=== PATIENT | female | born 1965 | race Caucasian/White ===

== ENCOUNTER 2024-04-20 02:24 | Inpatient (IN) | payer BC, SELFPAY ==
[2024-04-19 22:47] VITALS: BP 168/96
[2024-04-19 23:10] VITALS: BMI 35.6
[2024-04-19 23:14] VITALS: BP 156/91
[2024-04-19 23:27] LABS: % Basophils 0.4 % (0-2); % Eosinophils 1.8 % (0-6); % Immature Granulocytes 0.5 % (0-0.5); % Lymphocytes 19.3 % (20.5-51.1); % Monocytes 8.3 % (1.7-9.3); % Neutrophils 69.7 % (42.2-75.2); Absolute Eosinophils 0.2 10^3/uL (0-0.7); Absolute Immature Granulocytes 0.1 10^3/uL (0-0.05); Absolute Lymphocytes 1.9 10^3/uL (1.2-3.4); Absolute Monocytes 0.8 10^3/uL (0.1-0.6); Absolute Neutrophils 6.8 10^3/uL (1.4-6.5); Hematocrit 40.7 % (37.0-47.0); Hemoglobin 13.8 g/dL (12.0-16.0); Mean Corp Hgb Conc. 33.9 g/dL (33.0-37.0); Mean Corpuscular Hgb 28.5 pg (27.0-31.0); Mean Corpuscular Volume 84.1 fL (81.0-99.0); Nucleated Red Blood Cells % 0 %; Platelet Count 298 10^3/uL (130-400); Red Blood Cell Count 4.84 10^6/uL (4.20-5.40); Red Cell Dist. Width 13.4 % (11.5-14.5); White Blood Cell Count 9.8 10^3/uL (4.8-10.8)
[2024-04-19 23:52] LABS: ALT (SGPT) 43 U/L (0-35); AST (SGOT) 50 U/L (14-36); Albumin 4.6 g/dl (3.5-5.0); Alkaline Phosphatase 95 U/L (38-126); Blood Urea Nitrogen 28 mg/dl (7-17); Carbon Dioxide 27 mmol/L (22-30); Chloride 96 mmol/L (98-107); Estimated Creatinine Clearance 62 ml/min; Glucose 166 mg/dl (70-99); Potassium 4.8 mmol/L (3.5-5.1); Sodium 135 mmol/L (135-145); Total Bilirubin 0.9 mg/dl (0.2-1.3); Total Protein 7.9 g/dl (6.3-8.2); eGFR > 60.00
[2024-04-20] VITALS (21 sets, daily range): BP systolic 100–178; BP diastolic 52–101; BMI 35.1
[2024-04-20 00:02] LABS: Troponin I 0.152 ng/ml
--- NOTE | 2024-04-20 00:12 | ED.GENMED ---
History of Present Illness
General
Chief Complaint: Chest Pain
Source: patient
Time Seen by Provider: 04/20/24 00:10
Nursing documentation reviewed up to this point in time: agreed with
Travel History
Have you had any contact with someone who has COVID-19?: No
Do you have any symptoms of coronavirus? Fever > 100 degrees, chills, cough, shortness of breath, sore throat, loss of taste or smell, muscle aches, or headache?: No
History of Present Illness
History of Present Illness:
59-year-old female that presents with 1 week of left-sided jaw pain and intermittent chest pain. She states that the chest pain feels similar to 'cold air burning her throat'. Patient follows with Dr. Nikunj Muñoz, ernie Franklin/[facility]
cardiology
Vital signs are stable. Patient not hypoxic
Nursing note reviewed. I agree with nursing documentation up to this point in time.
Home Meds and allergies reviewed.
NUMBER AND COMPLEXITY OF PROBLEMS ADDRESSED AT THE ENCOUNTER
� Chronic conditions affecting care: Hypertension, hyperlipidemia, diabetes, sleep apnea, CVA
� Acute Exacerbation and/or Progression of Chronic Illness:
� Differential Diagnosis includes: ACS, GERD, musculoskeletal chest pain
AMOUNT AND/OR COMPLEXITY OF DATA TO BE REVIEWED AND ANALYZED
I performed an independent evaluation of the following and my interpretation is:
EKG: EKG shows normal sinus rhythm rate of 78 with normal intervals, indeterminate axis. No evidence of obvious acute ischemia present. No previous EKG available in our system, in MUSE through computer interpretation there is
'nonspecific T wave abnormality no longer evident in inferior leads'.
Repeat EKG shows normal sinus rhythm rate of 95 with similar morphology to previous but increased rate.
CT:
X-rays:
Ultrasound:
Laboratory Studies: Initial troponin 0.152
Other:
Review of other/old records: Exercise stress test dated 02/28/2021:
CONCLUSION:
1.No obvious ischemia at 69% maximum predicted heart
rate, however, inconclusive stress test given low heart
rate.
2.Recommend pharmacologic nuclear stress, if indicated.
Clinical information was obtained by an independent historian: is present at the bedside
Prescriptions/Medications Considered but not given: Patient takes 325 aspirin daily and did so today.
Further testing considered but not performed:
RISK OF COMPLICATIONS AND/OR MORBIDITY OR MORTALITY OF PATIENT MANAGEMENT
Social determinants of health affecting care: Good Social Support
Discussion with other providers:
Escalation of care including admission/observation vs risk of discharge considered: Given this patient elevated troponin, cardiology moving fine.
CRITICAL CARE NOTE:
Total Time (exclusive of procedures):
Update:
Past History
Past History
ED Past Medical History: HTN, Hypercholesterolemia, NIDDM and Other (TIA)
ED Past Surgical History: Appendectomy and
Social History
Tobacco: Non-smoker
Alcohol: None
Drug: None
Personal:
Living: with family
Employment: Employed
Phy Exam
Physical Exam
Physical Exam:
Physical Exam
Vital signs and allergy list reviewed and agreed with.
GENERAL: Alert , in minimal to no apparent distress
EYE: pupils equal, EOMI, anicteric
NECK: Supple, no significant adenopathy. No masses. Trachea midline
ENT: Oropharynx is clear, mmm.
CARDIAC: Regular rate and rhythm . No M/R/G
LUNGS: Clear breath sounds bilaterally, no acute respiratory distress, no wheezes/rales/rhonchi
ABDOMEN: Soft, without focal tenderness, no r/g, no cvat. Normal BSx4q
NEUROLOGICAL: Alert and oriented, no focal neuro deficits
SKIN: Warm and dry, skin intact.
MUSCULOSKELETAL: No edema, well perfused. Moves all 4 extremities
PSYCH: Normal and appropriate interaction.
Scores
Heart Score for Chest Pain Patients
STEMI patient?: No
History: Slightly or Non-Suspicious
ECG: Normal
Age: >45 - <65 years
Risk Factors: 1 or 2 Risk Factors
Troponin: >1 - <3 x Normal Limit
Heart Score for Chest Pain Patients: 3
Heart Score Risk: 2.5% MACE over next 6 weeks
Course
Orders/Labs/Results
Orders:
Orders
04/19/24 22:50
Electrocardiogram (*1) Urgent
Reason for Study: Chest Pain
EKG- Treatment ONCE
04/19/24 23:09
CMP [Comprehensive Metabolic Panel] Urgent
Complete Blood Count/With Diff Urgent
Troponin I Urgent
04/20/24 00:15
Electrocardiogram (*1) Urgent
Reason for Study: Chest Pain
EKG- Treatment ONCE
04/20/24 00:22
Troponin I Urgent
04/20/24 00:28
Nitroglycerin Sublingual [Nitrostat (Sublingual)] 0.4 mg SL [id number] PRN
04/20/24 02:09
Admit/Transfer Patient As Directed
Co-Sign Provider:
Level of Care: Inpatient admission
Assign to:: IVU
Physician / Group: Misha
Diagnosis: Chest Pain
Reason for Hospitalization: Chest Pain
Expected length of stay greater than two midnights?: Yes
ELOS- Estimated Length of Stay in days: 2
I certify the patient meets the requirements for IP care: Yes
04/20/24 02:14
Code Status As Directed
Resuscitation Status: Full Code
04/20/24 02:58
Acetaminophen [Tylenol] 650 mg PO Q4HPRN PRN
Dextrose 50%-Water [Dextrose 50% Syringe] 12.5 grams IV [id number] PRN
Glucagon [GlucaGen] 1 mg IM PRN PRN
Morphine Sulfate 2 mg IV Q4HPRN PRN
Nitroglycerin Sublingual [Nitrostat (Sublingual)] 0.4 mg SL [id number] PRN
04/20/24 02:58
CARDIOLOGY CONSULT Routine
Consulting Provider: Sawyer Salazar
Was physician already notified: No
Reason for consult: Chest Pain, Abnormal Troponin
Consult Notification Routine
Specialty to Notify: Cardiology
Activity As Directed
Activity Level: Ambulate
With Assistance
Bedside Glucose Monitoring As Directed
Frequency: AC&HS
Additional Instructions:: Change to q6h if pt on TPN, tube feeding or not eating
Bladder Scan As Directed
Follow Bladder Retention/Intermittent Cath Algorithm?: Yes
PRN if no void in __ hours: 6
Frequency: Per Retention Algorithm
If Bladder Scan Result >: 400
then:: Straight cath
EKG with chest pain [ECG as needed] As Directed
ECG as needed for:: Chest Pain
I/O [Intake/ Output] As Directed
Frequency: Per unit guidelines
Orthostatic Vital Signs As Directed
Orthostatic VS Frequency: BID
Pneumatic Compression Sleeves As Directed
Type: Knee high
Straight Cath As Directed
Frequency: Per Retention Algorithm
Additional Instructions: straight cath as needed per acute urinary retention algorithm for 24 hrs
Additional Instructions: for bladder scan greater than 400 mL
Vital Signs As Directed
Frequency: Per unit guidelines
Weight As Directed
Frequency: Daily
Oxygen Therapy [O2 Therapy] [RESP] Routine
Titrate/Wean O2 to maintain O2 sat greater than (%): 94
Ot Eval And Treat Routine
PT Consult [Pt Eval And Treat] Routine
Activity Level: Ambulate
With Assistance
DX Deep Vein Thrombosis Video Routine
04/20/24 04:49
Basic Metabolic Panel IN AM
Cardiovascular Evaluation IN AM
Complete Blood Count/No Diff IN AM
Glycohemoglobin (HgbA1c) IN AM
Troponin I Q6H
04/20/24 06:00
EKG [Electrocardiogram (*1)] IN AM
Reason for Study: Chest Pain
04/20/24 07:30
Insulin Aspart Corrective Low [Novolog Flexpen-Low Resistance] See Protocol SC AC
04/20/24 08:00
Aspirin Chewable [Low Strength Aspirin] 81 mg PO DAILY
Heparin 5,000 units SC Q8
Metoprolol Xl [Toprol Xl] 100 mg PO DAILY
Spironolactone [Aldactone] 50 mg PO DAILY
04/20/24 08:58
Troponin I Q6H
04/20/24 14:58
Troponin I Q6H
04/20/24 18:00
Atorvastatin [Lipitor] 40 mg PO QPM
04/20/24 22:00
Cyclobenzaprine HCl [Flexeril] 5 mg PO HS
Famotidine [Pepcid] 40 mg PO HS
04/21/24 Breakfast
NPO
Allow oral meds: Yes
Allow clear liquids: Sips of Clears
Abnormal Lab Results
04/19/24 04/20/24
23:09 00:22
Abs Immat Gran (auto) 0.1 H 10^3/uL
(0-0.05)
Absolute Neuts (auto) 6.8 H 10^3/uL
(1.4-6.5)
Absolute Monos (auto) 0.8 H 10^3/uL
(0.1-0.6)
Lymphocytes % 19.3 L %
(20.5-51.1)
Chloride 96 L mmol/L
(98-107)
BUN 28 H mg/dl
(7-17)
Glucose 166 H mg/dl
(70-99)
AST 50 H U/L
(14-36)
ALT 43 H U/L
(0-35)
Troponin I 0.152 H* ng/ml 0.117 H* ng/ml
04/19/24 23:09
04/19/24 23:09
Vital Signs
Initial and Last Documented VS:
Initial Vital Signs
Temp Pulse Resp BP Pulse Ox
97.8 F 88 18 168/96 100
04/19/24 22:47 04/19/24 22:47 04/19/24 22:47 04/19/24 22:47 04/19/24 22:47
Last Documented Vital Signs
Temp Pulse Resp BP Pulse Ox
98.2 F 63 18 148/89 100
04/20/24 04:56 04/20/24 04:51 04/20/24 04:56 04/20/24 04:51 04/20/24 04:56
*Critical Care Note
Total Time (30-74mins, 75-104mins- exclusive of procedures): Not Applicable
ED Attending Note
-
Portions of this chart may have been created with voice recognition software.� Occasional wrong word or��sound alike� substitutions may have occurred due to the inherent limitations of voice recognition software.
Discharge Plan
Departure
Patient Disposition: Admit
Date of Disposition: 04/20/24
Time of Disposition: 01:04
Admit to: Telemetry
Presentation/result/management discussed w/ accepting MD/DO: Hospitalist
Condition: Fair
Discharge Problem:
Chest pain
Interventions
Interventions:
*Risk Screen - Suicide Last Done: 04/19/24 22:47
*General Assessment Last Done: 04/19/24 23:10
*Neglect/Abuse Screening Last Done: 04/19/24 22:47
ED- Fall Risk Assessment Last Done: 04/19/24 23:11
*ED COVID-19 Vaccine History Last Done: 04/19/24 23:10
*Nursing Disposition Last Done: 04/20/24 03:04
ED- Cardiac Assessment Last Done: 04/19/24 23:30
Discharge Date and Time
Discharge Date/Time: 04/20/24 03:05
[2024-04-20] MEDS: NITROSTAT (SUBLINGUAL) 0.400000000000000022 MG SL ×5 (00:30→04:38)
[2024-04-20 00:59] LABS: Troponin I 0.117 ng/ml
--- NOTE | 2024-04-20 02:17 | HPS.HSE ---
Family Physician
-
Family Physician: Joan Alonso
Chief Complaint
-
Jaw Pain / Headache
History of Present Illness
Patient is a 59y F with PMH significant for PCOS, hypertension and DM-II who presents to ED complaining of bilateral jaw pain and headache. Patient states that she has been having symptoms intermittently for the past week or so. She reports
bilateral jaw pain, diffuse headache, occasional blurry vision. She has had some burning sensation in the chest that is worse with lying flat. Patient reports that she has had headaches daily for the past week. She has a prior history of
migraine; however, current headache is not similar to her usual migraine.
Patient denies any prior history of similar constellation of symptoms.
In the ED, patient received two doses of SL NTG and her symptoms have resolved. She has no jaw pain or headache at present.
Medical History
Past Medical History
Past Medical History: Reports Other
Additional Past Medical History:
Hypertension
DM-II
Mitral Valve Prolapse
PCOS
Obesity
TMJ
TIA
Past Surgical History: Reports Other
Additional Past Surgical History:
Appendectomy
Social History
Tobacco: Non-smoker
Alcohol: None
Drug: None
Living: With Family
Family History
Family History: Other (Father: CAD Brother: CAD)
Allergies / Home Medications
Allergies reflects when Allergies were last updated in [facility].
Home Medications with original date entered in [facility]
Allergy/Medication List:
Allergies
Allergy/AdvReac Type Severity Reaction Status Date / Time
No Known Allergies Allergy Verified 04/19/24 22:49
Home Medications
aspirin 325 mg tablet 325 mg PO DAILY 05/02/17
atorvastatin 10 mg tablet 10 mg PO QPM 05/02/17
cholecalciferol (vitamin D3) 25 mcg (1,000 unit) tablet 5,000 units PO DAILY 05/02/17
ibuprofen 200 mg capsule (Advil Liqui-Gel) 400 - 600 mg PO DAILYPRN PRN pain 05/02/17
Metformin Extended Release 1 tab PO BID 09/19/17
cyclobenzaprine 5 mg tablet 5 mg PO HS 04/20/24
famotidine 04/20/24
fluticasone furoate 100 mcg-vilanterol 25 mcg/dose inhalation powder (Breo Ellipta) 1 inh inhalation DAILY 04/20/24
losartan 25 mg tablet 12.5 mg PO BID 04/20/24
metoprolol succinate 100 mg tablet,extended release 24 hr 100 mg PO DAILY 04/20/24
spironolactone 04/20/24
Review of Systems
-
History Source: Patient
A 12 point ROS was completed and negative except as noted: Yes
Constitutional: Denies Fever or Chills
EENT: Reports Other (Jaw Pain - bilateral); Denies Sore Throat
Respiratory: Denies Cough or Trouble Breathing
Cardiac: Reports Chest Pain; Denies Diaphoresis, Palpitations or Syncope
Abdomen/GI: Reports Other (Heartburn, belching.); Denies Abdominal Pain, Nausea, Vomiting or Diarrhea
: Denies Dysuria or Frequency
Musculoskeletal: Denies Joint Pain, Joint Swelling or Edema
Neurological: Reports Headache; Denies Dizzy, Weakness or Numbness
Psych: Denies Depression or Anxiety
Physical Exam
Vital Signs
Vital Signs
Temp Pulse Resp BP Pulse Ox
97.8 F 85 16 172/94 98
04/19/24 22:47 04/20/24 00:45 04/20/24 00:45 04/20/24 00:27 04/20/24 00:45
Physical Exam
General: Other (59y F in no acute distress.)
HEENT: Moist mucous membranes, PERRLA and Other (Thick neck.)
Respiratory: Clear; No Wheezes, Rales or Rhonchi
Cardiac: S1/S2, Regular Rhythm and Murmur (II/ BERNARDINO)
GI: Non Tender, Non Distended, Normal Bowel Sounds and Other (Obese)
Musculoskeletal: No Clubbing, No Cyanosis and No Edema
Neuro: AO x 3
Laboratory Results
-
04/19/24 23:09
04/19/24 23:09
Laboratory Results
Total Bilirubin 0.9 mg/dl (0.2-1.3) 04/19/24 23:09
AST 50 U/L (14-36) H 04/19/24 23:09
ALT 43 U/L (0-35) H 04/19/24 23:09
Alkaline Phosphatase 95 U/L (38-126) 04/19/24 23:09
Troponin I 0.117 ng/ml H* 04/20/24 00:22
Impression/Plan
-
A/P: Patient is a 59y F with PMH significant for hypertension and DM-II who presents to ED complaining of one week of intermittent headache, jaw pain, etc.
Myocardial Injury - Unknown Type
- Admit for further evaluation and treatment.
- Constellation of symptoms in this 59y female with DM may certainly represent anginal equivalent.
- Bilateral jaw pain, headache, chest burning improved with NTG.
- Troponin initially elevated at 0.152 and now 0.117.
- EKG is normal with no evident ischemia
- Monitor on telemetry.
- Continue ASA, statin, metoprolol, etc.
- Continue serial troponin
- Cardiology evaluation for additional recommendations / possible ischemic evaluation.
GERD
- Patient also describes burning sensation in the chest that is worse with lying supine.
- She notes that she takes Tums every evening before bed chronically.
- Certainly some of her symptoms may be of GI origin - though CV etiology must be rule out first.
- Continue acid suppression with H2 blockade and add PPI.
Benign Hypertension
- Stable. Continue outpatient med regimen with holding parameters.
- Adjust as needed or adequate BP control.
DM-II
- Stable. Hold PO metformin for now.
- Follow glucose and cover with SSI as needed
- Update A1C.
PCOS
Obesity
- Affects all aspects of care.
- Continue spironolactone for PCOS / HTN.
- Encourage continued healthy diet and regular exercise with goal of weight reduction.
DVT Prophylaxis: Subcut Heparin
Code Status: Full
--- NOTE | 2024-04-20 03:43 | PTCARENOTE ---
pt admitted into 224- admission and assessment completed- SCDs applied.
[2024-04-20] MEDS: MORPHINE SULFATE 2 MG IV (04:23)
[2024-04-20 04:58] LABS: Hematocrit 40.7 % (37.0-47.0); Hemoglobin 13.6 g/dL (12.0-16.0); Mean Corp Hgb Conc. 33.4 g/dL (33.0-37.0); Mean Corpuscular Hgb 28.5 pg (27.0-31.0); Mean Corpuscular Volume 85.3 fL (81.0-99.0); Mean Platelet Volume 9.8 fL (7.4-10.4); Platelet Count 318 10^3/uL (130-400); Red Blood Cell Count 4.77 10^6/uL (4.20-5.40); Red Cell Dist. Width 13.2 % (11.5-14.5); White Blood Cell Count 9.9 10^3/uL (4.8-10.8)
[2024-04-20] MEDS: TYLENOL 650 MG PO ×2 (05:04→21:47)
[2024-04-20 05:27] LABS: Blood Urea Nitrogen 25 mg/dl (7-17); Calcium 10.3 mg/dl (8.4-10.2); Carbon Dioxide 25 mmol/L (22-30); Chloride 101 mmol/L (98-107); Estimated Creatinine Clearance 62 ml/min; Glucose 160 mg/dl (70-99); HDL Cholesterol 30 mg/dl; Potassium 4.7 mmol/L (3.5-5.1); Sodium 139 mmol/L (135-145); Total Cholesterol 179 mg/dl (50-199); eGFR > 60.00
[2024-04-20 05:33] LABS: Troponin I 0.354 ng/ml
--- NOTE | 2024-04-20 05:33 | PTCARENOTE ---
late note:Pt rang at 0338- stating she was having 2/10 jaw pain and downstairs nitro helped this pain- x1 nitro tab given with positive relief-BP pre:138/84 post:100/68 Pt was able to rest in bed until. 0426 when she rang stating she had to ambulate
the bathroom- following her trip to the bathroom her BP aarti to 173/92. She stated the jaw pain had returned and it felt like all her symptoms when they first started on day 2mg morphine given per JAN- without relief- she then stated that
she was having 6/10 sharp midsternal chest pain- 'different' than she was having at home. Pt tearful and visibly uncomfortable in bed. 2L NC applied for comfort. nitro sublingual tab give x 2 with some relief. down to 2-3/10. CARLITO Kumar aware and
up to see the pt- emotional support provided. morning EKG and blood work obtained during this episode. BSC obtained for future voiding.
[2024-04-20 05:36] LABS: Triglyceride 403 mg/dl (10-149)
[2024-04-20 05:59] LABS: LDL Cholesterol, Direct 116 mg/dl
[2024-04-20 07:27] LABS: Glucose - Point of Care 172 mg/dl (70-99)
[2024-04-20] MEDS: LOW STRENGTH ASPIRIN 81 MG PO (07:58)
[2024-04-20] MEDS: HEPARIN 5000 UNITS SC (07:58)
[2024-04-20] MEDS: NSS (PRESERVATIVE FREE) 10 ML IV (07:58)
[2024-04-20] MEDS: ALDACTONE 50 MG PO (07:58)
[2024-04-20] MEDS: PROTONIX IV 40 MG IV (07:59)
[2024-04-20] MEDS: NOVOLOG FLEXPEN-LOW RESISTANCE 1 UNITS SC (08:05)
--- NOTE | 2024-04-20 08:41 | CON.CAR ---
Consultation
Consultation Request
Date/Time Consultation Requested: Apr 19 2024
Date/Time Consultation Performed: Apr 20 2024
Requesting Provider: Hospitalist
Performing Provider: Sawyer Salazar
Reason for Consultation: elevated troponin chest pain
Medical History
-
Chief Complaint: Jaw pain headache chest pain
History of Present Illness:
59-year-old female with history of PCOS, hypertension, type 2 diabetes and migraines who is coming in with bilateral jaw pain, headache, and chest pain. She tells me over the last couple of weeks she has noticed worsening headache as well as jaw
and neck pain. It was happening much more frequently and seem to be associated with exertion and relieved with rest. Over the last few days she has noticed increased jaw and neck pain as well as substernal burning and sharp pain especially with
exertion. Yesterday she was walking up the choir steps and it became more intense than previously. When she got to the top of the stairs she then noticed that started to resolve with rest. She does have a significant family history of coronary
artery disease with heart attacks and brothers at young ages less than 55 and her father as well. When she came into the emergency room she received sublingual nitroglycerin which helped relieve her chest pain. She is currently chest pain-free.
She required additional nitroglycerin overnight as well.
Past Medical History
Past Medical History: Other (PCOS hypertension type 2 diabetes migraines obesity TMJ TIA)
Past Surgical History: Other (Appendectomy and )
Social History
Tobacco: Non-Smoker
Alcohol: None
Drug: None
Personal:
Living: With Family
Employment: Employed
Family History
Family History: CAD
Allergies / Home Medications
Allergy/AdvReac Type Severity Reaction Status Date / Time
No Known Allergies Allergy Verified 04/19/24 22:49
�Medication �Instructions �Recorded �Confirmed �Type
aspirin 325 mg tablet 325 mg PO DAILY 05/02/17 04/20/24 History
atorvastatin 10 mg tablet 10 mg PO QPM 05/02/17 04/20/24 History
cholecalciferol (vitamin D3) 25 2,000 units PO BID 05/02/17 04/20/24 History
mcg (1,000 unit) tablet
ibuprofen 200 mg capsule (Advil 400 - 600 mg PO DAILYPRN PRN pain 05/02/17 04/20/24 History
Liqui-Gel)
Metformin Extended Release 1 tab PO BID 09/19/17 04/20/24 History
cyclobenzaprine 5 mg tablet 5 mg PO HS 04/20/24 04/20/24 History
famotidine 04/20/24 History
fluticasone furoate 100 1 inh inhalation DAILY 04/20/24 04/20/24 History
mcg-vilanterol 25 mcg/dose
inhalation powder (Breo Ellipta)
losartan 25 mg tablet 12.5 mg PO BID 04/20/24 04/20/24 History
metoprolol succinate 100 mg 100 mg PO DAILY 04/20/24 04/20/24 History
tablet,extended release 24 hr
spironolactone 04/20/24 History
Review of Systems
-
All other systems: Negative unless noted
Physical Exam
Vital Signs
Temp Pulse Resp BP Pulse Ox
97.8 F 63 20 148/89 100
04/20/24 07:21 04/20/24 04:51 04/20/24 07:21 04/20/24 04:51 04/20/24 07:21
Lab Results
04/20/24 04:49
04/20/24 04:49
Troponin I 0.354 ng/ml H* D 04/20/24 04:49
Physical Exam
General: Well Developed and Well Nourished
HEENT: Normocephalic and Moist Mucous Membranes
Respiratory: Clear and Non Labored Respirations
Cardiac: S1/S2 and Regular Rhythm
GI: Soft and Normal Bowel Sounds
Skin: Warm and Dry
Neuro: AO x 3
Psych: Calm
Impression / Plan
-
59-year-old female with history of PCOS, hypertension, type 2 diabetes and TIA who is here for concerning symptoms of accelerated angina with elevated troponin likely NSTEMI.
NSTEMI
-Heparin drip aspirin high intensity statin blood pressure control risk factor modification
-Echocardiogram today
-Machine [employer] later today
Hypertension
-Continue losartan and metoprolol
Type 2 diabetes
-Per primary
PCOS
Obesity
GERD
TIA
Data Reviewed
-
EKG: Tracing Personally Visualized and interpreted (Sinus rhythm)
Labs: Labs Reviewed by me (Elevated troponin)
Total Time Spent with Patient (in minutes): Discussed with family patient and primary
[2024-04-20 09:38] LABS: Troponin I 0.574 ng/ml
[2024-04-20 09:43] LABS: APTT 33.7 Sec (23.4-35.0)
[2024-04-20] MEDS: HEPARIN 25000 UNITS/250 ML IV (10:20)
--- NOTE | 2024-04-20 10:37 | CARDSERVLU ---
Echocardiogram with [facility] completed after protocol screening completed. Allergies verified.
Patent IV site: _rac____
IV site flushed with 0.9% NaCl pre and post administration.
Diluted bolus method utilized to enhance visualization of ventricular rubin.
Total volume given: _4___ mL
Patient tolerated all procedures well without complications.
--- NOTE | 2024-04-20 11:58 | W.PN.UPDATE ---
Update Note
Progress Note Update
Seen and examined off overnight physician. Remains chest pain-free. Currently resting in bed. Discussed with spouse at bedside in detail.
General no acute distress.
Cardiac S1-S2 regular rate rhythm.
Pulmonary normal respiration without use of accessory muscles.
Extremities no edema.
A/P: Patient is a 59y F with PMH significant for hypertension and DM-II who presents to ED complaining of one week of intermittent headache, jaw pain, etc.
NSTEMI
- Bilateral jaw pain, headache, chest burning improved with NTG.
- Troponin noted
- EKG is normal with no evident ischemia
- Monitor on telemetry.
- Continue ASA, statin, metoprolol, etc. heparin infusion started this morning
- Continue serial troponin
- Undergoing echocardiogram. Plan for cardiac cath later today.
GERD
- Patient also describes burning sensation in the chest that is worse with lying supine.
- She notes that she takes Tums every evening before bed chronically.
- Certainly some of her symptoms may be of GI origin - though CV etiology must be rule out first.
- Continue acid suppression with H2 blockade and add PPI.
Benign Hypertension
- Stable. Continue outpatient med regimen with holding parameters.
- Adjust as needed or adequate BP control.
DM-II
- Stable. Hold PO metformin for now.
- Follow glucose and cover with SSI as needed
- Update A1C.
PCOS
Obesity
- Affects all aspects of care.
- Continue spironolactone for PCOS / HTN.
- Encourage continued healthy diet and regular exercise with goal of weight reduction.
DVT Prophylaxis: Heparin
Code Status: Full
[2024-04-20 13:29] LABS: Glucose - Point of Care 130 mg/dl (70-99)
[2024-04-20] MEDS: NOVOLOG FLEXPEN-LOW RESISTANCE SC ×2 (13:32→17:20)
--- NOTE | 2024-04-20 14:55 | PTCARENOTE ---
Pt with minimal activity today, pt with no complaints of chest pain. Heparin gtt initiated this AM. ECHO completed at bedside this morning. Pt has remained SR with HR 60's. BP 129/78 MAP 94. Pulse oximetry 98% on 2L nasal cannula. Pt now at cardiac
cath, heparin gtt stopped.
--- NOTE | 2024-04-20 16:21 | CM ---
Reviewed chart. She is off the floor at a Card Cath. Will try to see her again.
[2024-04-20 17:15] LABS: Glucose - Point of Care 146 mg/dl (70-99)
--- NOTE | 2024-04-20 17:39 | ITS.CL.ANGIO ---
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
Angioplasty
Procedure Report:
CARDIAC CATHETERIZATION REPORT
Date of Procedure: 04/20/2024
Referring: Sawyer Salazar M.D.
INDICATION: Non-ST elevation myocardial infarction.
PROCEDURE:
1. Left heart catheterization.
2. Coronary angiography.
3. Successful PCI of the mid LAD.
ACCESS:
6 Uzbek right radial artery.
CATHETERS:
1. 5 Uzbek JR4.
2. 5 Uzbek JL 3.5.
3. 6 Uzbek EBU 3.5 guiding catheter.
HEMODYNAMIC DATA
Weight (kg): 86.6
AO (s/d/x, mmHg): 111/70/90
LV (s/x mmHg): 121/15
LEFT VENTRICULOGRAPHY: Not performed.
CORONARY ANGIOGRAPHY
Dominance: Left.
Left Main: Normal size, bifurcating vessel. There is no coronary artery disease.
LAD: Normal size vessel giving rise to 1 significant diagonal. There is a 30% lesion in the ostial/proximal vessel. There is a 90% lesion in in the mid LAD, immediately proximal to the diagonal.
Ramus: Congenitally absent.
Circumflex: Large size, dominant vessel giving rise to 3 obtuse marginals before terminating as an LPDA. OM1 is a relatively small vessel. OM's 2 and 3 supplies the majority of the lateral and inferolateral wall. There is no coronary artery
disease.
RCA: Small size, nondominant vessel.
INTERVENTION(S)
1. Successful PCI of the 90% mid LAD lesion (Xience Skypoint 3.0 x 18 DAVID, postdilated with a 3.0 NC balloon) with reduction in stenosis to 0%, maintaining MEAGAN-3 flow.
Narrative:
The decision was made to proceed with percutaneous coronary intervention. The diagnostic catheter was removed over a wire and a 6Fr EBU 3.5 guiding catheter was advanced to the aortic root and seated in the left main coronary artery. Additional
heparin was given and a Power Turn Flex wire was advanced into the distal LAD. The 90% mid LAD lesion was predilated with a 2.0 x 12 semi-compliant balloon to 12 charity. The semi-compliant balloon was removed and a Xience Skypoint 3.0 x 18 drug-eluting
stent was advanced. The stent was deployed at 12 atmospheres. The stent balloon was removed. A 3.0 x 15 noncompliant balloon was advanced into the stent and the stent was postdilated to 14 atmospheres. Angiography was performed in orthogonal views,
confirming good stent expansion and an excellent angiographic result. The coronary wire was withdrawn and the guide was disengaged from the artery. The catheter was removed over a standard J-wire.
Closure Device: Vascular band.
Radiation (mGy): 634.32
DAP (cm2.Gy): 36.7338
Fluoroscopy time (minutes): 6.1
Sedation time (minutes): 32
CONCLUSIONS
1. Left dominant circulation with a 30% lesion in the proximal LAD and a culprit, 90% lesion in the mid LAD status post successful PCI (Xience Skypoint 3.0 x 18 DAVID, postdilated with a 3.0 NC balloon) with reduction in stenosis to 0%, maintaining
MEAGAN-3 flow.
2. Top normal filling pressures (LVEDP = 15 mmHg at 86.6 kg).
RECOMMENDATIONS:
1. Expectant management after cardiac catheterization via right radial approach.
2. Limited weight bearing on the right wrist for one week.
3. Dual antiplatelet therapy with aspirin and ticagrelor for at least 12 months, followed by aspirin indefinitely.
4. Aggressive risk factor modification and secondary prevention with high-dose, high potency statin.
5. Guideline directed medical therapy as hemodynamics tolerate in light of ischemic cardiomyopathy.
6. Referral to cardiac rehab.
Copy to: Sawyer Salazar M.D., Joan Alonso PA-C
Guanakito Ladd, DO, FACC, FACP
[2024-04-20] MEDS: TOPROL XL 100 MG PO (18:07)
[2024-04-20] MEDS: LIPITOR 40 MG PO (18:07)
[2024-04-20 21:04] LABS: Hepatitis C Antibody Negative (Negative)
[2024-04-20] MEDS: PEPCID 40 MG PO (21:48)
[2024-04-20] MEDS: FLEXERIL 5 MG PO (21:48)
[2024-04-20 22:12] LABS: Glucose - Point of Care 157 mg/dl (70-99)
[2024-04-21] VITALS (11 sets, daily range): BP systolic 109–139; BP diastolic 62–80; PULSE 75–80; O2SAT 98; BMI 34.8
--- NOTE | 2024-04-21 00:14 | PTCARENOTE ---
Pt received at start of shift, HR SR. Radial band removed at 1950 - site cleaned and sterile gauze + tegaderm placed over site. Surrounding area soft, no hematoma. Reinforced post-angiography activity restrictions w/ pt. Pt denies any CP, jaw pain,
SOB, or lightheadedness/dizziness at this time. Informed to notify RN if any changes, call heart within reach.
[2024-04-21 05:57] LABS: Blood Urea Nitrogen 22 mg/dl (7-17); Calcium 9.8 mg/dl (8.4-10.2); Carbon Dioxide 28 mmol/L (22-30); Chloride 102 mmol/L (98-107); Estimated Creatinine Clearance 62 ml/min; Glucose 139 mg/dl (70-99); Potassium 4.6 mmol/L (3.5-5.1); Sodium 139 mmol/L (135-145); eGFR > 60.00
[2024-04-21 07:14] LABS: Glucose - Point of Care 142 mg/dl (70-99)
[2024-04-21] MEDS: NOVOLOG FLEXPEN-LOW RESISTANCE SC ×2 (07:27→16:45)
[2024-04-21] MEDS: PROTONIX IV 40 MG IV (08:13)
[2024-04-21] MEDS: NSS (PRESERVATIVE FREE) 10 ML IV (08:13)
[2024-04-21] MEDS: BRILINTA 90 MG PO ×2 (08:14→19:39)
[2024-04-21] MEDS: LOW STRENGTH ASPIRIN 81 MG PO (08:14)
[2024-04-21] MEDS: ALDACTONE 50 MG PO (08:14)
[2024-04-21 09:09] LABS: ACT-LR - POC > 397 Seconds (116-155)
--- NOTE | 2024-04-21 09:14 | CM ---
Addendum entered by Vilma Fuchs 04/21/24 09:26:
Reviewed co-pay of $30.00 with her and $5.00 coupon card. she is agreeable to the co-pay. Also reviewed Advanced directives with her. Gave her the information.
Original Note:
Reviewed chart. Met with Mrs. Guadalupe to review discharge plans. She states prior to admission she resides with her spouse an 31 year old son in a two story home with one step to enter. She states she has thirteen steps to get to bedroom/full
bathroom. She states she has a powder room on the first floor. She states prior to admission she was independent with ambulation and adls. She states she does not have any DME in the home She states she has a prescription plan and uses [email or web address]. Telephone call to [facility] to check if they have Brilinta 90 mg po bid in stock. [facility] states they have Brilinta in stock. Her co-pay would be $30.00 a month. She has a commercial insurance so she can use the $5.00 coupon.
Placed the coupon in her red discharge folder. Medical work-up in progress. The discharge plan is to return home with her spouse and son when medically stable.
[2024-04-21 10:09] LABS: Glycohemoglobin (HgbA1c) 7.9 % (4.0-5.6)
--- NOTE | 2024-04-21 10:18 | W.PN.CD ---
Today's Communication / Plan
-
add back home losartan; cont Toprol XL and aldactone
DAPT
add Farxiga, as she also needs better DM control
ambulate hallway
trend tele
Impression / Plan
-
59-year-old female with history of PCOS, hypertension, type 2 diabetes and TIA admitted with NSTEMI.
CAD, NSTEMI
-DAVID to 90% mid LAD 04/20 PM
-ASA, Brilinta
-Toprol XL, losartan
ICM EF 45%, with apical LAD regional WMA
-Toprol XL, losartan, aldactone
-add Farxiga, as she also needs better DM control
Hypertension
-resume home losartan 12.5mg bid
-cont Toprol XL and aldactone
Hyperlipidemia
-atorvastatin increased to 40mg to target LDL under 70
Type 2 diabetes
-A1c 7.9: add farxiga
-co pay card provided
Mild : outpatient follow up.
PCOS
Obesity
GERD
TIA
Subjective:
No chest pain.
Physical Exam
Vital Signs/Labs
Vital Signs
Temp Pulse Resp BP Pulse Ox
97.4 F 80 16 116/67 99
04/21/24 07:10 04/21/24 09:00 04/21/24 07:10 04/21/24 07:11 04/21/24 09:39
04/20/24 04/21/24 04/22/24
06:59 06:59 06:59
Actual Weight 87 kg 86.3 kg
04/20/24 04:49
04/21/24 05:04
APTT 33.7 Sec (23.4-35.0) 04/20/24 09:01
Triglycerides 403 mg/dl (10-149) H 04/20/24 04:49
LDL Cholesterol, Calc mg/dl 04/20/24 04:49
VLDL Cholesterol, Calc mg/dl (0-30) 04/20/24 04:49
HDL Cholesterol 30 mg/dl 04/20/24 04:49
LAB Results
04/19/24 04/20/24 04/20/24
23:09 00:22 04:49
Troponin I 0.152 H* 0.117 H* 0.354 H* D
04/20/24 04/20/24 04/21/24
09:01 17:20 05:04
Troponin I 0.574 H* D 7.740 H* 6.280 H*
Physical Exam
Constitutional: No acute distress and Comfortable
EENT: Moist mucous membranes
Cardiovascular: Rhythm & rate is regular, Pedal edema is absent, JVD pressure is normal and Systolic murmur present
Respiratory: Respiratory effort normal and Lungs clear to auscul.
GI: Soft, Distention absent and Flat
Neuro/Psych: AO x 3
Data Reviewed
-
Date of Service: April 21, 2024
EKG: Other (Tele: SR 70s)
Labs: Labs Reviewed by me
[2024-04-21] MEDS: COZAAR 12.5 MG PO ×2 (10:33→19:39)
[2024-04-21] MEDS: FARXIGA 10 MG PO (10:33)
--- NOTE | 2024-04-21 11:00 | W.PN.HOSP.TC ---
Today's Communication/Plan
-
Monitor blood pressure
Diabetic education
Monitor on telemetry
Assessment / Plan
Assessment / Plan
A/P: Patient is a 59y F with PMH significant for hypertension and DM-II who presents to ED complaining of one week of intermittent headache, jaw pain, etc.
NSTEMI
CAD s/p DAVID to LAD
- Troponin downtrended noted
- Monitor on telemetry.
- Continue metoprolol. Restart home dose of losartan. Continue dual antiplatelet with aspirin and Brilinta.
-Monitor on telemetry. Increase dose of statin. Diabetic education. Need strict glycemic control.
GERD
- Continue acid suppression with H2 blockade and add PPI.
Benign Hypertension
- Stable. Continue outpatient med regimen with holding parameters.
- Adjust as needed or adequate BP control.
DM-II
- Stable. Hold PO metformin for now.
- Follow glucose and cover with SSI as needed
- Update A1C 7.9.. Diabetic education. Dietary consulted.
PCOS
Obesity
- Affects all aspects of care.
- Continue spironolactone for PCOS / HTN.
- Encourage continued healthy diet and regular exercise with goal of weight reduction.
History of TIA
-At home taking full dose aspirin. Plan will be for dual antiplatelet regimen.
-Continue with strict risk factor modification controlled with low-cholesterol dietary control and weight loss
DVT Prophylaxis: lovenox
Code Status: Full
Discussed with cardiology recommending monitoring overnight.
Anticipated Discharge: Within 24 hours
Subjective/Interval History
-
Date of Service: April 21, 2024
Denies any chest pain
Denies any nausea vomiting
Denies any right wrist pain or swelling
Objective Data
-
Labs:
Laboratory Results
04/21/24
05:04
Sodium 139
Potassium 4.6
Chloride 102
Carbon Dioxide 28
BUN 22 H
Creatinine 1.0
Glucose 139 H
Calcium 9.8
Vital Signs:
Vital Signs
Temp Pulse Resp BP Pulse Ox
97.4 F 80 16 116/67 99
04/21/24 07:10 04/21/24 09:00 04/21/24 07:10 04/21/24 07:11 04/21/24 09:39
I&O
04/20/24 04/21/24 04/22/24
06:59 06:59 06:59
Intake Total 480 / 480 532 / 532
Balance 480 / 480 532 / 532
Physical Exam
-
General: Well Developed, No Apparent Distress and Obese
HEENT: Normocephalic, Atraumatic and Moist Mucous Membranes
Respiratory: Clear to Auscultation
Cardiac: Regular Rhythm, S1/S2 and Other (R wrist dressing note. NO swelling or erythema. ); Negative Murmur, Rub or Gallop
GI: Soft, Nontender, Nondistended and Normal Bowel Sounds; Negative Organomegaly
Rectal: Deferred by Provider
Musculoskeletal: No Clubbing, No Cyanosis and No Edema
Skin: Negative Rash
Neuro: Awake, AO x 3, No Motor Deficits and Nonfocal/Grossly Intact
Psych: Calm
Data Reviewed
-
Total Time Spent with Patient (in minutes): 55
[2024-04-21 11:33] LABS: Glucose - Point of Care 160 mg/dl (70-99)
[2024-04-21] MEDS: TYLENOL 650 MG PO ×2 (12:27→18:33)
[2024-04-21] MEDS: NOVOLOG FLEXPEN-LOW RESISTANCE 1 UNITS SC (12:28)
--- NOTE | 2024-04-21 12:55 | PTCARENOTE ---
Pt remains SR with HR 60's-70's. BP 122/69 MAP 86. Pulse oximetry 98% on room air. Pt with no complaints of chest pain. Right radial site CDI, pulses palpable. Pt ambulating around unit with without difficulty. Pt currently OOB in chair with
call heart within reach.
[2024-04-21 16:38] LABS: Glucose - Point of Care 133 mg/dl (70-99)
[2024-04-21] MEDS: LOVENOX 40 MG SC (17:01)
[2024-04-21] MEDS: LIPITOR 40 MG PO (17:02)
[2024-04-21] MEDS: TOPROL XL 100 MG PO (17:02)
[2024-04-21 21:42] LABS: Glucose - Point of Care 153 mg/dl (70-99)
--- NOTE | 2024-04-21 21:52 | PTCARENOTE ---
Pt received at start of shift, HR SR. Pt c/o slight numbness in R hand compared to L hand. Cath site soft and nontender, R radial pulse normal, color normal, cap refill <2 seconds, temperature the same b/l hands, Pulsox 97-99% RA. TT Dr. Jenkins as
pt becoming increasingly anxious about it. CV HALIMA Orosco at bedside, assessed pt. Pt continues to have random episodes of SOB lasting seconds to a minute. Pt denies any CP, lightheadedness, or dizziness. Informed to notify RN if any changes, call
heart within reach.
[2024-04-21] MEDS: FLEXERIL 5 MG PO (22:18)
[2024-04-21] MEDS: PEPCID 40 MG PO (22:18)
[2024-04-22 04:03] VITALS: BP 139/72
[2024-04-22 04:20] VITALS: BMI 34.6
[2024-04-22 04:43] LABS: % Basophils 0.6 % (0-2); % Eosinophils 2.3 % (0-6); % Immature Granulocytes 0.4 % (0-0.5); % Lymphocytes 21.6 % (20.5-51.1); % Monocytes 9.5 % (1.7-9.3); % Neutrophils 65.6 % (42.2-75.2); Absolute Eosinophils 0.2 10^3/uL (0-0.7); Absolute Lymphocytes 1.5 10^3/uL (1.2-3.4); Absolute Monocytes 0.7 10^3/uL (0.1-0.6); Absolute Neutrophils 4.7 10^3/uL (1.4-6.5); Hematocrit 41.4 % (37.0-47.0); Hemoglobin 13.6 g/dL (12.0-16.0); Mean Corp Hgb Conc. 32.9 g/dL (33.0-37.0); Mean Corpuscular Hgb 28.5 pg (27.0-31.0); Mean Corpuscular Volume 86.6 fL (81.0-99.0); Mean Platelet Volume 9.8 fL (7.4-10.4); Nucleated Red Blood Cells % 0 %; Platelet Count 281 10^3/uL (130-400); Red Blood Cell Count 4.78 10^6/uL (4.20-5.40); Red Cell Dist. Width 13.4 % (11.5-14.5); White Blood Cell Count 7.1 10^3/uL (4.8-10.8)
[2024-04-22 05:16] LABS: Blood Urea Nitrogen 23 mg/dl (7-17); Calcium 10.2 mg/dl (8.4-10.2); Carbon Dioxide 26 mmol/L (22-30); Chloride 101 mmol/L (98-107); Estimated Creatinine Clearance 62 ml/min; Glucose 148 mg/dl (70-99); Potassium 4.4 mmol/L (3.5-5.1); Sodium 139 mmol/L (135-145); eGFR > 60.00
[2024-04-22 07:07] VITALS: BP 144/77
[2024-04-22 07:10] LABS: Glucose - Point of Care 131 mg/dl (70-99)
--- NOTE | 2024-04-22 07:40 | W.PN.CD ---
Today's Communication / Plan
-
DC ticagrelor.
Clopidogrel 600 mg this afternoon followed by 75 mg daily.
Right radial artery US.
DC planning.
Impression / Plan
-
Impression/Plan: 59-year-old female with history of PCOS, hypertension, type 2 diabetes and TIA admitted with NSTEMI.
#CAD, NSTEMI
-S/P 90% mid LAD PCI (Xience Skypoint 3.0 x 18 DAVID), 04/20/2024.
-DAPT with aspirin. D/C ticagrelor in light of SOB and load with clopidogrel 600 mg this afternoon, followed by 75 mg daily. No role for prasugrel given history of TIA.
-Radial artery US to r/o pseudoaneurysm.
-Continue metoprolol succinate, losartan, atorvastatin 40 mg daily.
#ICM
-LVEF 45%, with apical LAD regional WMA.
-Continue GDMT with metoprolol, losartan, spironolactone. Dapagliflozin added yesterday.
#Hypertension
-Chronic, stable.
-Monitor on GDMT.
#Hyperlipidemia
-Chronic, stable.
-Atorvastatin increased to 40mg to target LDL < 55.
#Type 2 diabetes
-Chronic, uncontrolled.
-HbA1c 7.9.
-Dapagliflozin added.
-Co-pay card provided.
#Mild : outpatient follow up.
#PCOS
#Obesity
#GERD
#TIA
Subjective/Interval History:
Complains of intermittent shortness in breath.
She also notes some right radial paresthesias.
Otherwise she feels well.
Telemetry is benign.
DATA:
Cardiac Catheterization/PCI, 04/20/2024:
CONCLUSIONS
1. Left dominant circulation with a 30% lesion in the proximal LAD and a culprit, 90% lesion in the mid LAD status post successful PCI (Xience Skypoint 3.0 x 18 DAVID, postdilated with a 3.0 NC balloon) with reduction in stenosis to 0%, maintaining
MEAGAN-3 flow.
2. Top normal filling pressures (LVEDP = 15 mmHg at 86.6 kg).
TTE, 04/20/2024:
CONCLUSIONS
1. Left dominant circulation with a 30% lesion in the proximal LAD and a culprit, 90% lesion in the mid LAD status post successful PCI (Xience Skypoint 3.0 x 18 DAVID, postdilated with a 3.0 NC balloon) with reduction in stenosis to 0%, maintaining
MEAGAN-3 flow.
2. Top normal filling pressures (LVEDP = 15 mmHg at 86.6 kg).
Physical Exam
Vital Signs/Labs
Vital Signs
Temp Pulse Resp BP Pulse Ox
36.8 C 68 14 139/72 97
04/22/24 07:07 04/22/24 07:07 04/22/24 07:07 04/22/24 04:03 04/22/24 07:07
04/20/24 04/21/24 04/22/24
11:59 11:59 11:59
Actual Weight 87 kg 86.3 kg 85.8 kg
04/22/24 04:14
04/22/24 04:14
APTT 33.7 Sec (23.4-35.0) 04/20/24 09:01
Triglycerides 403 mg/dl (10-149) H 04/20/24 04:49
LDL Cholesterol, Calc mg/dl 04/20/24 04:49
VLDL Cholesterol, Calc mg/dl (0-30) 04/20/24 04:49
HDL Cholesterol 30 mg/dl 04/20/24 04:49
LAB Results
04/19/24 04/20/24 04/20/24
23:09 00:22 04:49
Troponin I 0.152 H* 0.117 H* 0.354 H* D
04/20/24 04/20/24 04/21/24
09:01 17:20 05:04
Troponin I 0.574 H* D 7.740 H* 6.280 H*
Physical Exam
Constitutional: No acute distress and Comfortable
EENT: Anicteric and Moist mucous membranes
Cardiovascular: Rhythm & rate is regular, Pedal edema is absent, JVD pressure is normal, S1S2 is normal and Murmur/rub/gallop absent
Respiratory: Respiratory effort normal, Lungs clear to auscul., Wheeze Absent, Crackles Absent and Rhonchi Absent
GI: Soft, Distention absent, Flat, Non tender and Normal bowel sounds
Neuro/Psych: AO x 3
Other: Cath Site (Right radial access site is C/D/I. There is some very mild discoloration/hematoma.)
Data Reviewed
-
Date of Service: April 22, 2024
Medical Decision Making: Reviewed Test Results, Independent Historian Assessment and Test Interpretation
EKG: Tracing Personally Visualized and interpreted and Report Reviewed by me
Echo: Tracing Personally Visualized and interpreted and Report Reviewed by me
Medical Tests (PFT, Pathology etc): Image Personally Visualized and interpreted and Report Reviewed by me
Labs: Labs Reviewed by me
[2024-04-22] MEDS: LOW STRENGTH ASPIRIN 81 MG PO (09:17)
[2024-04-22] MEDS: NOVOLOG FLEXPEN-LOW RESISTANCE SC (09:17)
[2024-04-22] MEDS: FARXIGA 10 MG PO (09:18)
[2024-04-22] MEDS: COZAAR 12.5 MG PO (09:18)
[2024-04-22] MEDS: ALDACTONE 50 MG PO (09:18)
[2024-04-22] MEDS: PROTONIX IV 40 MG IV (09:19)
[2024-04-22] MEDS: NSS (PRESERVATIVE FREE) 10 ML IV (09:19)
[2024-04-22 11:30] VITALS: BP 114/77
[2024-04-22 11:33] LABS: Glucose - Point of Care 173 mg/dl (70-99)
--- NOTE | 2024-04-22 11:51 | W.PN.HOSP.TC ---
Addendum entered and electronically signed by Ed Donovan MD 04/23/24 08:44:
More than 30 minutes spent in discharge including
Final examination of the patient
Summarizing hospital stay
Instructions for continuing care to all relevant caregivers
Preparation of discharge records, prescriptions, and referral forms
Total time spent (in minutes): 52
Original Note:
Today's Communication/Plan
-
see note
Assessment / Plan
Assessment / Plan
A/P: Patient is a 59y F with PMH significant for hypertension and DM-II who presents to ED complaining of one week of intermittent headache, jaw pain, etc.
NSTEMI
CAD s/p DAVID to LAD
- Troponin downtrended noted
- Monitor on telemetry.
- Continue metoprolol. Restart home dose of losartan. Continue dual antiplatelet with aspirin and Brilinta. However, plan to switch to Plavix per Intervention cards. DC Brilinta now.
- Monitor on telemetry. Increase dose of statin. Diabetic education. Need strict glycemic control.
- RUE arterial Us pending r/o pseudoaneurysm.
GERD
- Continue acid suppression with H2 blockade and add PPI.
Benign Hypertension
- Stable. Continue outpatient med regimen with holding parameters.
- Adjust as needed or adequate BP control.
DM-II
- Stable. Hold PO metformin for now.
- Follow glucose and cover with SSI as needed
- Update A1C 7.9.. Diabetic education. Dietary consulted.
PCOS
Obesity
- Affects all aspects of care.
- Continue spironolactone for PCOS / HTN.
- Encourage continued healthy diet and regular exercise with goal of weight reduction.
History of TIA
-At home taking full dose aspirin. Plan will be for dual antiplatelet regimen.
-Continue with strict risk factor modification controlled with low-cholesterol dietary control and weight loss
DVT Prophylaxis: lovenox
Code Status: Full
Dispo-pending RUE US. Plan for tentative dc later today pending studies.
Anticipated Discharge: Within 24 hours
Subjective/Interval History
-
Date of Service: April 22, 2024
walked around yesterday
no left sided chest pain
tele benign
Objective Data
-
Labs:
Laboratory Results
04/22/24
04:14
WBC 7.1
Hgb 13.6
Hct 41.4
Plt Count 281
Sodium 139
Potassium 4.4
Chloride 101
Carbon Dioxide 26
BUN 23 H
Creatinine 1.0
Glucose 148 H
Calcium 10.2
Vital Signs:
Vital Signs
Temp Pulse Resp BP Pulse Ox
98.5 F 88 16 114/77 98
04/22/24 11:30 04/22/24 11:30 04/22/24 11:30 04/22/24 11:30 04/22/24 11:30
I&O
04/21/24 04/22/24 04/23/24
06:59 06:59 06:59
Intake Total 532 / 532 480 / 480
Balance 532 / 532 480 / 480
[2024-04-22] MEDS: NOVOLOG FLEXPEN-LOW RESISTANCE 1 UNITS SC (12:30)
--- NOTE | 2024-04-22 13:08 | CM ---
Reviewed chart. Met with Mrs. Guadalupe to review discharge plans. She states she is feeling better and maybe able to go val soon. Prior to admission tita resides with her spouse and son in a two story val with one step to enter. She has thirteen
steps to get to bedroom/full bathroom. She has a powder room on the first floor. Prior to admission she was independent with ambulation and adls. She does not have any DME in the home. She has a prescription plan and uses [facility]. Medical
work-up in progress. The discharge plan is to return home with her spouse and son when medically stable.
[2024-04-22 15:23] VITALS: BP 108/77
[2024-04-22] MEDS: PLAVIX 600 MG PO (15:48)
[2024-04-22 17:04] LABS: Glucose - Point of Care 172 mg/dl (70-99)
--- NOTE | 2024-04-22 17:17 | W.DCSUMMARY ---
Discharge Summary
Discharge Data
Date of Admission: 04/20/24
Date of Discharge: 04/22/24
-
Pending Results: No
Hospital Course
59-year-old female past medical history of hypertension, hyperlipidemia, diabetes mellitus, PCOS, obesity, GERD who is presenting with complaint of chest pain. Patient troponin was elevated. Heparin drip was started. Patient was eval by
cardiology and underwent cardiac catheterization. Patient was found to have a LAD stenosis status post DAVID. Patient was started on goal-directed medical therapy on aspirin, Brilinta. Farxiga was added. Patient was continued on metoprolol and
losartan. Patient with episode of shortness of breath and intervention cardiology switch patient from Brilinta to Plavix status post receiving loading dose. Patient was also complaining of right hand numbing and underwent ultrasound which was
negative for pseudoaneurysm as cardiac catheterization was performed via right radial approach. Patient with echocardiogram which showed EF of 45% with mild mitral regurgitation and aortic stenosis. The apex, apical septum and apical anterior
rubin appears akinetic and hypokinesis of the septum. Patient was ambulating in the room without any chest pain or difficulty. Vital signs were stable. Patient be discharged with outpatient cardiology follow-up
Discharge Plan
-
Patient Disposition: Home (Routine Discharge)
Discharge Diagnosis/Procedures: NSTEMI
CAD s/p Angioplasty and stent to Left Anterior Descending artery
Hyperlipidemia
Condition: Fair
Diet: Low Cholesterol
Activity: As tolerated
Driving Restrictions: No driving for 24 hours
Stand Alone Forms: DC Instructions- Cath/EP Lab
Referrals:
[facility] [Outside]
(Cardiac Rehab Orientation appointment is on 05/18/2024@ 1pm.
The Cardiac Rehab gym is located on the first floor of the [facility].)
Joan Alonso PA-C [Family Provider] -
Nikunj Cottrell MD [Active] - 05/20/24 2:40 pm (Cardiology followup appointment)
Prescriptions:
New
atorvastatin [Lipitor] 40 mg tablet
40 mg PO HS Qty: 30 0RF
dapagliflozin propanediol 10 mg Tablet
10 mg PO DAILY 30 Days Qty: 30 0RF
aspirin [Children's Aspirin] 81 mg Tablet,Chewable
81 mg PO DAILY 30 Days Qty: 30 0RF
clopidogrel 75 mg Tablet
75 mg PO DAILY 30 Days Qty: 30 0RF
Continued
cholecalciferol (vitamin D3) 1,000 UNITS tablet
2,000 units PO BID
Metformin Extended Release
1 tab PO BID
fluticasone furoate-vilanterol [Breo Ellipta] 100-25 mcg/dose Blister With Device
1 inh INHALATION DAILY
spironolactone
50 mg DAILY
losartan 25 mg Tablet
12.5 mg PO BID
cyclobenzaprine 5 mg Tablet
5 mg PO QPM
metoprolol succinate 100 mg Tablet Extended Release 24 Hr
100 mg PO DAILY
famotidine 20 mg Tablet
20 mg PO HS
Discontinued
atorvastatin 10 MG tablet
10 mg PO QPM
aspirin 325 MG tablet
325 mg PO DAILY
ibuprofen [Advil Liqui-Gel] 200 MG capsule
400 - 600 mg PO DAILYPRN PRN (Reason: pain)
Discharge Orders:
Discharge Patient (As Directed); Ordered 04/22/24
Ordered By: Ed Donovan
Care Plan Goals
Care Plan Goals:
Problem: Readiness for enhanced knowledge related to diagnosis and treatment plan
Goal: Understand your diagnosis and treatment plan needs, including medications if applicable.
Instructions: Know your diagnosis, underlying causes and treatment plan options, including medications if applicable. Consult with your health care team to learn about your diagnosis and treatment plan, including medications if applicable.
Discharge Date and Time
Discharge Date/Time: 04/22/24 18:42
Print Language: TAMAZIGHT
--- NOTE | 2024-04-22 18:49 | PTCARENOTE ---
Pt c/o twinge of discomfort under her right breast which resolved without intervention. Pt had U/S of right wrist, report given to . Telemetry and IV device removed. Discharge instructions reviewed with pt and her regarding
medications and their possible side effects, wound care, activity and driving guidelines, reporting cares and concerns and follow up appt's. Very good understanding verbalized. Pt escorted out via wheelchair and discharged to home.
== END 2024-04-22 18:42 | disposition home or self-care (01) | DRG 322 ==
LOC: IVU 02:24
PROVIDERS: Internal Medicine; Internal Medicine Cardiovascular Disease; Nurse Practitioner; ADMITTING PHYSICIAN Hospitalist; ATTENDING PHYSICIAN Hospitalist; CONSULT PHYSICIAN Internal Medicine Cardiovascular Disease; EMERGENCY PHYSICIAN Student in an Organized Health Care Education/Training Program; FAMILY PHYSICIAN Physician Assistant
PROC: 027034Z Dilation of Coronary Artery, One Artery with Drug-eluting Intraluminal Device, Percutaneous Approach (ICD-10-PCS; 2024-04-20)
PROC: B2111ZZ Fluoroscopy of Multiple Coronary Arteries using Low Osmolar Contrast (ICD-10-PCS; 2024-04-20)
PROC: 4A023N7 Measurement of Cardiac Sampling and Pressure, Left Heart, Percutaneous Approach (ICD-10-PCS; 2024-04-20)
DX: I21.4 Non-ST elevation (NSTEMI) myocardial infarction (principal); E11.9 Type 2 diabetes mellitus without complications; G47.30 Sleep apnea, unspecified; I10 Essential (primary) hypertension; E78.00 Pure hypercholesterolemia, unspecified; I25.10 Atherosclerotic heart disease of native coronary artery without angina pectoris; K21.9 Gastro-esophageal reflux disease without esophagitis; M26.609 Unspecified temporomandibular joint disorder, unspecified side; I34.1 Nonrheumatic mitral (valve) prolapse; E28.2 Polycystic ovarian syndrome; E66.9 Obesity, unspecified; Z86.73 Personal history of transient ischemic attack (TIA), and cerebral infarction without residual deficits; Z68.34 Body mass index [BMI] 34.0-34.9, adult; Z82.49 Family history of ischemic heart disease and other diseases of the circulatory system; Z79.82 Long term (current) use of aspirin; Z79.1 Long term (current) use of non-steroidal anti-inflammatories (NSAID); Z79.84 Long term (current) use of oral hypoglycemic drugs
CPT/HCPCS: 80048; 80053; 80061; 82962; 83036; 83721; 84484; 85025; 85027; 85347; 85730; 86803; 93005; 93306; 93458; 93926; 97162; 97166; 99285; C1725; C1874; C1894; C9600; Q9950; Q9967

== ENCOUNTER 2024-05-29 11:18 | Outpatient (RCR) | payer BC, SELFPAY ==
[2024-05-18 14:51] LABS: Glucose - Point of Care 111 mg/dl (70-99)
[2024-05-18 15:49] LABS: Glucose - Point of Care 101 mg/dl (70-99)
[2024-05-20 10:59] LABS: Glucose - Point of Care 135 mg/dl (70-99)
[2024-05-20 11:52] LABS: Glucose - Point of Care 119 mg/dl (70-99)
[2024-05-22 11:02] LABS: Glucose - Point of Care 128 mg/dl (70-99)
[2024-05-22 11:55] LABS: Glucose - Point of Care 109 mg/dl (70-99)
[2024-05-25 11:08] LABS: Glucose - Point of Care 110 mg/dl (70-99)
[2024-05-25 12:11] LABS: Glucose - Point of Care 111 mg/dl (70-99)
[2024-05-27 10:59] LABS: Glucose - Point of Care 143 mg/dl (70-99)
[2024-05-27 12:00] LABS: Glucose - Point of Care 92 mg/dl (70-99)
[2024-05-29 11:07] LABS: Glucose - Point of Care 117 mg/dl (70-99)
[2024-05-29 12:10] LABS: Glucose - Point of Care 99 mg/dl (70-99)
== END 2024-05-29 23:59 | disposition home or self-care (01) ==
LOC: CRHB 11:18
PROVIDERS: ATTENDING PHYSICIAN Internal Medicine Cardiovascular Disease
DX: I25.10 Atherosclerotic heart disease of native coronary artery without angina pectoris (principal); Z95.5 Presence of coronary angioplasty implant and graft; I25.2 Old myocardial infarction
CPT/HCPCS: 82962; 93797; 93798; G0422; G0423

== ENCOUNTER 2024-06-26 11:18 | Outpatient (RCR) | payer BC, SELFPAY | END 2024-06-26 23:59 | disposition home or self-care (01) | LOC: CRHB 11:18 | PROVIDERS: ATTENDING PHYSICIAN Internal Medicine Cardiovascular Disease | DX: I25.10 Atherosclerotic heart disease of native coronary artery without angina pectoris (principal); Z95.5 Presence of coronary angioplasty implant and graft; I25.2 Old myocardial infarction | CPT/HCPCS: 93797; 93798; G0422; G0423 ==

== ENCOUNTER 2024-07-02 07:19 | Outpatient (RCR) | payer BC, SELFPAY | END 2024-07-02 23:59 | disposition home or self-care (01) | LOC: CRHB 07:19 | PROVIDERS: ATTENDING PHYSICIAN Internal Medicine Cardiovascular Disease; FAMILY PHYSICIAN Physician Assistant | DX: I25.10 Atherosclerotic heart disease of native coronary artery without angina pectoris (principal); Z95.5 Presence of coronary angioplasty implant and graft | CPT/HCPCS: 93797; 93798 ==

== ENCOUNTER → 2024-07-07 16:18 | Outpatient (REF) | payer BC, SELFPAY | LOC: RCS 16:18 | PROVIDERS: ATTENDING PHYSICIAN Internal Medicine Interventional Cardiology; FAMILY PHYSICIAN Physician Assistant | DX: I25.10 Atherosclerotic heart disease of native coronary artery without angina pectoris (principal); I25.5 Ischemic cardiomyopathy | CPT/HCPCS: 93005; 93306 ==